=== PATIENT | male | born 1995 | race Two or more races ===

== ENCOUNTER 2016-12-27 19:57 | Emergency (ER) | payer MEDICAID, OTHER ==
[~2016-12-27] VITALS: Ht 180.3 cm; Wt 120.2 kg
[2016-12-27 20:01] VITALS: BP 149/97
== END 2016-12-27 22:18 | disposition home or self-care (01) ==
LOC: ER 19:58
DX: N39.0 Urinary tract infection, site not specified (principal); I10 Essential (primary) hypertension; J06.9 Acute upper respiratory infection, unspecified
CPT/HCPCS: 99283; A4606; Z7610